=== PATIENT | male | born 1960 | race Two or more races ===

== ENCOUNTER 2020-01-14 10:45 | Outpatient (CLI) | payer OTHER ==
[~2020-01-14 10:45] MED LIST: ASA325 M1 PO; CLONAZEPAM0.125 MG/T PO; DULCOLAX5 MG PO; FOLIC + B12 TAB1 TAB PO; HYZAAR 50-12.1 UDTAB PO; METOPROLOL SUC100 MG PO; NEURONTIN800 MG PO; OXYCONTIN10 MG PO; OXYCONTIN20 MG PO; PERCOCET 5/321 UDTAB PO; TOPROL XL100 MG PO; VYTORIN 10-40 M1 TAB PO
== END 2020-01-14 10:52 | disposition home or self-care (01) ==
LOC: RAD 10:45
PROVIDERS: ATTEND Anesthesiology Pain Medicine
DX: M16.31 Unilateral osteoarthritis resulting from hip dysplasia, right hip (principal); M25.561 Pain in right knee

== ENCOUNTER 2020-02-22 11:46 | Outpatient (CLI) | payer OTHER | END 2020-02-22 11:54 | disposition home or self-care (01) | LOC: RAD 11:46 | PROVIDERS: ATTEND Anesthesiology Pain Medicine | DX: T84.84XA Pain due to internal orthopedic prosthetic devices, implants and grafts, initial encounter (principal) ==

== ENCOUNTER 2020-05-11 09:55 | Outpatient (CLI) | payer OTHER | END 2020-05-11 10:12 | disposition HB | LOC: TOM 09:55 | DX: M96.1 Postlaminectomy syndrome, not elsewhere classified (principal) ==

== ENCOUNTER 2020-06-21 11:16 | Outpatient (CLI) | payer OTHER | END 2020-06-21 11:17 | disposition home or self-care (01) | LOC: PPH VACUNA 11:16 | DX: Z23 Encounter for immunization (principal) ==

== ENCOUNTER → 2020-08-28 | Outpatient (CLI) | payer OTHER | END | disposition home or self-care (01) | LOC: RAD 12:13 | PROVIDERS: ATTEND Neurological Surgery | DX: M54.5 Low back pain (principal) ==